=== PATIENT | male | born 1970 | race Caucasian/White ===

== ENCOUNTER 2024-07-12 10:35 | Emergency (ER) | payer OTHER ==
[~2024-07-12] VITALS: Ht 165.1 cm; Wt 68.1 kg
[2024-07-12 10:37] VITALS: BP 119/83; PULSE 124; RESP 16; TEMP 98; O2SAT 96
== END 2024-07-12 10:58 | disposition home or self-care (01) ==
LOC: ER 10:36
DX: Z00.00 Encounter for general adult medical examination without abnormal findings (principal); Z76.0 Encounter for issue of repeat prescription; Z88.8 Allergy status to other drugs, medicaments and biological substances
CPT/HCPCS: 99281

== ENCOUNTER 2024-07-21 16:43 | Emergency (ER) | payer MEDICAID, OTHER ==
[~2024-07-21] VITALS: Ht 165.1 cm; Wt 68.2 kg
[2024-07-21] MEDS ORDERED: busPIRone 15mg tablet PO ONE (16:55)
[2024-07-21] MEDS ORDERED: QUEtiapine 25mg tablet PO ONE (16:55)
[2024-07-21] MEDS ORDERED: [UNRECOGNIZED DRUG - CODE] PO (17:03)
[2024-07-21] MEDS ORDERED: PHEN64.8 PO (17:03)
[2024-07-21] MEDS ORDERED: BUSP15TA7 PO (17:03)
[2024-07-21] MEDS ORDERED: CLON-850 PO (17:03)
[2024-07-21] MEDS ORDERED: MIRT-140 PO (17:03)
[2024-07-21] MEDS ORDERED: DULO-31 PO (17:03)
[2024-07-21] MEDS ORDERED: QUET-1 PO (17:03)
[2024-07-21] MEDS ORDERED: QUET400T PO (17:03)
[2024-07-21] MEDS ORDERED: GABA600T13 PO (17:05)
[2024-07-21] MEDS ORDERED: LEVO125C4 PO (17:05)
[2024-07-21] MEDS: duloxetine 30mg CAPSULE.DR PO SCH (17:35)
[2024-07-21] MEDS: clonazePAM 1mg tablet PO ONE (17:35)
[2024-07-21] MEDS: busPIRone 15mg tablet PO SCH (17:35)
[2024-07-21] MEDS: QUEtiapine 25mg tablet PO SCH (17:36)
[2024-07-21] MEDS: acetaminophen 325mg tablet PO ONE (17:36)
[2024-07-21] MEDS: phenobarbital 30mg tablet PO SCH (17:37)
[2024-07-21] MEDS: mupirocin 2% ointment 22GM TP ONE (17:37)
[2024-07-21] MEDS: TETanus/Pertussis (Acell)/Diphther VAC/PF (Tdap-Adult) 0.5ml syringe IMVAC ONE (17:39)
[2024-07-21] MEDS: phenobarbital 30mg tablet PO ONE (18:21)
[2024-07-21 18:22] VITALS: BP 111/82; PULSE 102; RESP 15; TEMP 97.9; O2SAT 97
== END 2024-07-21 18:25 | disposition home or self-care (01) ==
LOC: ER 16:43
DX: S31.819D Unspecified open wound of right buttock, subsequent encounter (principal); Z76.0 Encounter for issue of repeat prescription; Z88.6 Allergy status to analgesic agent; Z88.8 Allergy status to other drugs, medicaments and biological substances; Z88.2 Allergy status to sulfonamides; W34.09XD Accidental discharge from other specified firearms, subsequent encounter
CPT/HCPCS: 90471; 90715; 99284; A6258

== ENCOUNTER 2024-07-26 10:57 | Emergency (ER) | payer MEDICAID ==
[~2024-07-26] VITALS: Ht 165.1 cm; Wt 150.0 kg
[~2024-07-26 10:57] MED LIST: BUSP15TA7 PO; CLON-850 PO; DULO-31 PO; GABA600T13 PO; LEVO125C4 PO; MIRT-140 PO; PHEN64.8 PO; QUET-1 PO; QUET400T PO; [UNRECOGNIZED DRUG - CODE] PO
[2024-07-26] MEDS ORDERED: CHLO25CA10 PO (13:01)
[2024-07-26] MEDS ORDERED: QUET-1 PO ×2 (13:03→13:04)
[2024-07-26 15:01] VITALS: BP 144/89; PULSE 92; RESP 16; TEMP 97.3; O2SAT 97
== END 2024-07-26 15:16 | disposition home or self-care (01) ==
LOC: ER 10:58
DX: F10.239 Alcohol dependence with withdrawal, unspecified (principal); F41.9 Anxiety disorder, unspecified; Z76.0 Encounter for issue of repeat prescription; Z88.8 Allergy status to other drugs, medicaments and biological substances; Z79.899 Other long term (current) drug therapy; Z79.1 Long term (current) use of non-steroidal anti-inflammatories (NSAID)
CPT/HCPCS: 99283

== ENCOUNTER 2024-07-29 02:00 | Emergency (ER) | payer MEDICAID ==
[~2024-07-29] VITALS: Ht 165.1 cm; Wt 68.2 kg
[~2024-07-29 02:00] MED LIST changes: +CHLO25CA10 PO
[2024-07-29] MEDS ORDERED: gabapentin 300mg capsule PO SCH (03:00)
[2024-07-29] MEDS ORDERED: levoTHYROXINE 75mcg tablet PO SCH (03:00)
[2024-07-29] MEDS ORDERED: PHEN64.8 PO (03:13)
[2024-07-29] MEDS ORDERED: QUET400T PO (03:13)
[2024-07-29] MEDS ORDERED: GABA600T13 PO (03:13)
[2024-07-29] MEDS ORDERED: LEVO125C4 PO (03:13)
[2024-07-29] MEDS ORDERED: BUSP15TA7 PO (03:13)
[2024-07-29] MEDS ORDERED: MIRT-140 PO (03:13)
[2024-07-29] MEDS ORDERED: CLON1TAB23 PO (03:13)
[2024-07-29] MEDS ORDERED: QUET-1 PO (03:13)
[2024-07-29] MEDS: phenobarbital 30mg tablet PO ONE (04:07)
[2024-07-29] MEDS: gabapentin 300mg capsule PO ONE (04:08)
[2024-07-29] MEDS: clonazePAM 1mg tablet PO ONE (04:08)
[2024-07-29] MEDS: levoTHYROXINE 75mcg tablet PO ONE (04:08)
[2024-07-29] MEDS: busPIRone 15mg tablet PO STA (04:08)
[2024-07-29] MEDS: mirtazapine 15mg tablet PO SCH (04:12)
[2024-07-29 05:24] VITALS: TEMP 98.2
[2024-07-29 07:25] VITALS: BP 124/76; PULSE 91; RESP 14; O2SAT 98
[2024-07-30] MEDS ORDERED: CHLO25CA10 PO (22:38)
[2024-07-30] MEDS ORDERED: CLON-570 PO (22:38)
[2024-07-30] MEDS ORDERED: BUSP15TA3 PO (22:38)
[2024-07-30] MEDS ORDERED: MIRT-88 PO (22:42)
[2024-07-30] MEDS ORDERED: GABA600T13 PO (22:42)
[2024-07-30] MEDS ORDERED: LEVO125T8 PO (22:42)
[2024-07-30] MEDS ORDERED: QUET-1 PO (22:46)
[2024-07-30] MEDS ORDERED: ONDA-104 PO (23:08)
[2024-07-30] MEDS ORDERED: DULO30CA52 PO (23:08)
[2024-07-30] MEDS ORDERED: QUET300T2 PO (23:13)
== END 2024-07-29 07:25 | disposition home or self-care (01) ==
LOC: ER 02:01
DX: F32.A Depression, unspecified (principal); R44.0 Auditory hallucinations; F15.90 Other stimulant use, unspecified, uncomplicated; Z88.8 Allergy status to other drugs, medicaments and biological substances; Z88.5 Allergy status to narcotic agent; Z79.899 Other long term (current) drug therapy
CPT/HCPCS: 99284

== ENCOUNTER 2024-07-30 17:19 | Emergency (ER) | payer MEDICAID ==
[~2024-07-30] VITALS: Ht 165.1 cm; Wt 68.2 kg
[~2024-07-30 17:19] MED LIST changes: +CLON1TAB23 PO
[2024-07-30 17:27] VITALS: BP 100/67; PULSE 107; O2SAT 94
[2024-07-30 17:43] VITALS: RESP 16
[2024-07-30 18:25] LABS: BASOPHILS % (AUTO) 0.9 % (0-1); EOSINOPHILS # (AUTO) 0.2 X10'3 (0-0.9); EOSINOPHILS % (AUTO) 5.6 % (0-6); LYMPHOCYTES % (AUTO) 45.5 % (21-51); MEAN CORPUSCULAR HEMOGLOBIN 29.8 PG (27.0-31.0); MEAN CORPUSCULAR HGB CONC 33.4 g/dL (33.0-36.5); MEAN CORPUSCULAR VOLUME 89.4 FL (78-98); MEAN PLATELET VOLUME 7.1 FL (7.4-10.4); MONOCYTES # (AUTO) 0.4 X10'3 (0-0.9); MONOCYTES % (AUTO) 8.5 % (2-12); NEUTROPHILS # (AUTO) 1.7 X10'3 (1.8-7.7); NEUTROPHILS % (AUTO) 39.5 % (42-75); PLATELET COUNT 274 X10'3 (140-440); RED BLOOD COUNT 4.36 X10'6 (4.70-6.10); RED CELL DISTRIBUTION WIDTH 15.8 % (11.5-14.5); WHITE BLOOD COUNT 4.4 X10'3 (4.5-11.0)
[2024-07-30 18:46] LABS: ALBUMIN 3.3 G/DL (3.4-5.0); ANION GAP 8 (8-16); BLOOD UREA NITROGEN 7 MG/DL (7-18); BUN/CREATININE RATIO 10.1 (10.0-20.0); CALCIUM 8.5 MG/DL (8.5-10.1); CHLORIDE 103 MMOL/L (99-107); CREATININE 0.69 MG/DL (0.60-1.10); ETHANOL 201 MG/DL (<10); GLUCOSE 83 MG/DL (70-104); POTASSIUM 3.2 MMOL/L (3.5-5.1); SODIUM 141 MMOL/L (135-145); THYROID STIMULATING HORMONE 4.45 ulU/ml (0.34-4.50); TOTAL CARBON DIOXIDE 30.4 MMOL/L (24-32); eCRCL 110 ML/MIN; eGFR > 90 ML/MIN
[2024-07-30] MEDS ORDERED: CHLO25CA10 PO (22:38)
[2024-07-30] MEDS ORDERED: CLON-570 PO (22:38)
[2024-07-30] MEDS ORDERED: BUSP15TA3 PO (22:38)
[2024-07-30] MEDS ORDERED: MIRT-88 PO (22:42)
[2024-07-30] MEDS ORDERED: GABA600T13 PO (22:42)
[2024-07-30] MEDS ORDERED: LEVO125T8 PO (22:42)
[2024-07-30] MEDS ORDERED: QUET-1 PO (22:46)
[2024-07-30] MEDS ORDERED: DULO30CA52 PO (23:08)
[2024-07-30] MEDS ORDERED: ONDA-104 PO (23:08)
[2024-07-30] MEDS ORDERED: QUET300T2 PO (23:13)
[2024-07-30] MEDS ORDERED: chlordiazePOXIDE 25mg capsule PO PRN (23:35)
[2024-07-31] MEDS: phenobarbital 30mg tablet PO SCH (00:19)
[2024-07-31 07:37] LABS: URINE AMPHETAMINE SCREEN POSITIVE (Neg); URINE BARBITUATE SCREEN POSITIVE (Neg); URINE BENZODIAZEPINES SCREEN POSITIVE (Neg); URINE CANNABINOID SCREEN NEGATIVE (Neg); URINE COCAINE SCREEN NEGATIVE (Neg); URINE METHADONE SCREEN NEGATIVE (Neg); URINE OPIATE SCREEN NEGATIVE (Neg); URINE PHENCYCLIDINE SCREEN NEGATIVE (Neg)
[2024-07-31 07:56] LABS: BILIRUBIN,URINE NEGATIVE (Neg); CLARITY,URINE CLEAR (Clear); COLOR,URINE YELLOW (Yellow); GLUCOSE, URINE NEGATIVE (Neg); KETONES,URINE NEGATIVE (Neg); LEUKOCYTE ESTERASE ,URINE NEGATIVE (Neg); NITRITES, URINE NEGATIVE (Neg); OCCULT BLOOD,URINE NEGATIVE (Neg); PROTEIN,URINE 30 mg/dl (Neg); UA COLLECTION TYPE CLN CATCH MIDSTREAM; UROBILINOGEN,URINE 0.2 E.U/dL (0.2-1.0)
[2024-07-31 07:58] LABS: RBC,URINE NONE SEEN /HPF (0-2)
[2024-07-31 07:59] LABS: BACTERIA,URINE FEW /HPF (Neg); MUCUS STRANDS MODERATE /LPF (Neg); SQUAMOUS EPITHELIAL CELL,UR FEW /LPF (FEW)
[2024-07-31] MEDS: busPIRone 15mg tablet PO SCH (08:00)
[2024-07-31] MEDS: levoTHYROXINE 125mcg tablet PO SCH (08:00)
[2024-07-31] MEDS: duloxetine 30mg CAPSULE.DR PO SCH (08:00)
[2024-07-31] MEDS: clonazePAM 1mg tablet PO SCH (08:00)
[2024-07-31] MEDS: quetiapine 100mg tablet PO SCH (08:00)
[2024-07-31] MEDS: gabapentin 300mg capsule PO SCH (08:00)
[2024-07-31] MEDS: ondansetron 4mg rapidly disintigrating tab PO SCH (08:00)
[2024-07-31] MEDS ORDERED: ibuprofen tablet 400 MG TABLET PO PRN (09:55)
[2024-07-31 18:05] VITALS: TEMP 97.8
[2024-07-31] MEDS ORDERED: quetiapine fumarate ER 300mg tablet PO SCH (21:00)
[2024-07-31] MEDS ORDERED: mirtazapine 15mg tablet PO SCH (21:00)
== END 2024-07-31 18:09 | disposition home or self-care (01) ==
LOC: ER 17:19
DX: R45.851 Suicidal ideations (principal); Z20.822 Contact with and (suspected) exposure to COVID-19; F15.90 Other stimulant use, unspecified, uncomplicated; F32.A Depression, unspecified; Z88.8 Allergy status to other drugs, medicaments and biological substances; Z79.899 Other long term (current) drug therapy
CPT/HCPCS: 36415; 80048; 80305; 80320; 81001; 84443; 85025; 87811; 99284

== ENCOUNTER 2024-08-02 13:59 | Emergency (ER) | payer MEDICAID ==
[~2024-08-02] VITALS: Ht 165.1 cm; Wt 67.8 kg
[~2024-08-02 13:59] MED LIST changes: +BUSP15TA3 PO; -BUSP15TA7 PO; +CLON-570 PO; -CLON-850 PO; -CLON1TAB23 PO; -DULO-31 PO; +DULO30CA52 PO; -LEVO125C4 PO; +LEVO125T8 PO; -MIRT-140 PO; +MIRT-88 PO; +ONDA-104 PO; +QUET300T2 PO; -QUET400T PO; -[UNRECOGNIZED DRUG - CODE] PO
[2024-08-02 15:48] VITALS: BP 148/93; PULSE 106; RESP 15; TEMP 98.3; O2SAT 95
[2024-08-03] MEDS ORDERED: AMOX-580 PO (12:56)
[2024-08-03] MEDS ORDERED: OLAN5TAB3 PO (20:49)
== END 2024-08-02 15:56 | disposition home or self-care (01) ==
LOC: ER 13:59
DX: R56.9 Unspecified convulsions (principal); F32.A Depression, unspecified; F17.200 Nicotine dependence, unspecified, uncomplicated; F15.90 Other stimulant use, unspecified, uncomplicated; Z88.8 Allergy status to other drugs, medicaments and biological substances; Z88.5 Allergy status to narcotic agent; Z79.899 Other long term (current) drug therapy
CPT/HCPCS: 99283

== ENCOUNTER 2024-08-03 12:01 | Emergency (ER) | payer MEDICAID ==
[~2024-08-03] VITALS: Ht 165.1 cm; Wt 65.1 kg
[2024-08-03 12:55] VITALS: BP 139/99; PULSE 87; RESP 18; TEMP 98.1; O2SAT 98
[2024-08-03] MEDS ORDERED: AMOX-580 PO (12:56)
[2024-08-03] MEDS ORDERED: OLAN5TAB3 PO (20:49)
== END 2024-08-03 15:15 | disposition home or self-care (01) ==
LOC: ER 12:02
DX: F20.9 Schizophrenia, unspecified (principal); F15.90 Other stimulant use, unspecified, uncomplicated; F32.A Depression, unspecified; Z88.8 Allergy status to other drugs, medicaments and biological substances; Z88.5 Allergy status to narcotic agent; Z79.899 Other long term (current) drug therapy
CPT/HCPCS: 99281

== ENCOUNTER 2024-08-03 20:14 | Emergency (ER) | payer MEDICAID ==
[~2024-08-03] VITALS: Ht 165.1 cm; Wt 68.2 kg
[~2024-08-03 20:14] MED LIST changes: +AMOX-580 PO
[2024-08-03] MEDS ORDERED: OLAN5TAB3 PO (20:49)
[2024-08-03] MEDS: OLANZapine 2.5MG tablet PO STA (20:59)
[2024-08-03 21:03] VITALS: BP 156/108; PULSE 97; RESP 16; TEMP 97.8; O2SAT 98
== END 2024-08-03 21:06 | disposition home or self-care (01) ==
LOC: ER 20:15
DX: R44.2 Other hallucinations (principal); F32.A Depression, unspecified; F15.90 Other stimulant use, unspecified, uncomplicated; Z88.8 Allergy status to other drugs, medicaments and biological substances; Z79.899 Other long term (current) drug therapy
CPT/HCPCS: 99283

== ENCOUNTER 2024-08-07 12:24 | Emergency (ER) | payer MEDICAID ==
[~2024-08-07] VITALS: Ht 165.1 cm; Wt 70.5 kg
[~2024-08-07 12:24] MED LIST changes: -AMOX-580 PO; +OLAN5TAB3 PO
[2024-08-07 12:29] VITALS: BP 105/65; PULSE 115; RESP 16; TEMP 96.7; O2SAT 98
== END 2024-08-07 16:48 | disposition left against medical advice (07) ==
LOC: ER 12:25
DX: R44.0 Auditory hallucinations (principal); Z53.21 Procedure and treatment not carried out due to patient leaving prior to being seen by health care provider

== ENCOUNTER 2024-08-07 18:03 | Emergency (ER) | payer MEDICAID ==
[~2024-08-07] VITALS: Ht 165.1 cm; Wt 70.5 kg
[2024-08-07 18:09] VITALS: BP 100/43; PULSE 110; TEMP 96.8; O2SAT 97
[2024-08-07 18:52] VITALS: RESP 18
== END 2024-08-07 18:55 | disposition home or self-care (01) ==
LOC: ER 18:04
DX: F41.9 Anxiety disorder, unspecified (principal); F32.A Depression, unspecified; F15.90 Other stimulant use, unspecified, uncomplicated; Z88.8 Allergy status to other drugs, medicaments and biological substances; Z79.899 Other long term (current) drug therapy; Z59.00 Homelessness unspecified
CPT/HCPCS: 99281